=== PATIENT | female | born 1980 | race Caucasian/White ===

== ENCOUNTER 2017-02-20 09:26 | Emergency (ER) | payer MEDICAID ==
[~2017-02-20] VITALS: Ht 160 cm; Wt 51.0 kg
[2017-02-20 09:29] VITALS: BP 108/73
[2017-02-20 10:46] LABS: APPEARANCE,URINE CLEAR (CLEAR); GLUCOSE, URINE (UA) NEGATIVE (NEGATIVE); KETONES,URINE NEGATIVE (NEGATIVE); LEUKOCYTE ESTERASE ,URINE NEGATIVE (NEGATIVE); OCCULT BLOOD,URINE NEGATIVE (NEGATIVE); PROTEIN,URINE NEGATIVE (NEGATIVE)
[2017-02-20 11:13] LABS: RBC,URINE None Seen /HPF (0-2); SQUAMOUS EPITHELIAL CELL,UR Few /LPF (None Seen)
[2017-02-20] MEDS ORDERED: CIPROFLOXACIN HCL 250 MG TABLET PO ONE (12:00)
[2017-02-22 23:11] LABS: GC DNA N.A. AMPLIFY Negative (Negative)
== END 2017-02-20 12:12 | disposition home or self-care (01) ==
LOC: EMS 09:29
DX: Z72.51 High risk heterosexual behavior (principal); F20.9 Schizophrenia, unspecified
CPT/HCPCS: 87086; 87491; 87591; 99284